=== PATIENT | female | born 1980 | race African-American/Black ===

== ENCOUNTER → 2020-06-12 | Outpatient (CLI) | payer BC ==
[2020-06-12 15:21] LABS: CHLORIDE 111 mEq/L (98-107)
[2020-06-12 15:33] LABS: LDL CHOLESTEROL 169 mg/dL (5-100)
[2020-06-12 15:35] LABS: HDL CHOLESTEROL 62 mg/dL (40-59)
== END | disposition home or self-care (01) ==
LOC: LAB 14:37
PROVIDERS: ATTEND Family Medicine
DX: E03.9 Hypothyroidism, unspecified (principal); E78.5 Hyperlipidemia, unspecified
CPT/HCPCS: 36415; 80053; 80061; 84443